=== PATIENT | male | born 1975 | race Two or more races ===

== ENCOUNTER 2023-05-12 04:34 | Day surgery (SDC) | payer OTHER ==
[2023-05-06 15:45] VITALS: BMI 30.7
[2023-05-12] MEDS ORDERED: SUCCINYLCHOLINE CHLORIDE 200 MG/10 ML SYRINGE ONE (12:53)
[2023-05-12] MEDS ORDERED: PROPOFOL 40 ML ONE (12:53)
[2023-05-12] MEDS ORDERED: BUPIVACAINE HCL/PF 0.5% (5MG/ML) 10 ML VIAL ONE (12:54)
[2023-05-12] MEDS ORDERED: HYDROmorphone HCl 2 MG/ML VIAL ONE (13:29)
[2023-05-12] MEDS ORDERED: MIDAZOLAM HCL 2 MG/2 ML SINGLE DOSE VIAL ONE ×2 (13:29→15:23)
[2023-05-12] MEDS ORDERED: ROCURONIUM BROMIDE 50 MG/5 ML SYRINGE ONE (13:31)
[2023-05-12] MEDS ORDERED: ceFAZolin SODIUM 1 GM VIAL IVPB ONE (14:17)
[2023-05-12] MEDS ORDERED: BUPIVACAINE HCL/PF 0.5% (5MG/ML) 10 ML VIAL IJ ONE (14:25)
[2023-05-12] MEDS ORDERED: LIDOCAINE 1% P/F 10 MG/ML VIAL INF ONE (14:25)
[2023-05-12] MEDS ORDERED: ACETAMINOPHEN INJECTION 100 ML IVPB ONE (15:03)
[2023-05-12] MEDS ORDERED: NEOSTIGMINE METHYLSULFATE 0.5 MG/1 ML - 10 ML MDV ONE (15:21)
[2023-05-12] MEDS ORDERED: ONDANSETRON 4 MG/2 ML VIAL IVPUSH PRN (16:15)
[2023-05-12] MEDS ORDERED: LACTATED RINGERS SOLUTION 1,000 ML IV SCH (16:15)
[2023-05-12] MEDS ORDERED: oxyCODONE HCL 5 MG TABLET PO PRN (16:15)
[2023-05-12 19:05] VITALS: RESP 20; TEMP 98.2
[2023-05-12] MEDS ORDERED: oxyCODONE HCL 5 MG TABLET ONE (19:08)
[2023-05-12 20:28] VITALS: BP 112/59; PULSE 70
== END 2023-05-12 20:00 | disposition home or self-care (01) ==
LOC: JASU-SURG 04:34
PROVIDERS: ATTEND Surgery
PROC: 0YU50JZ Supplement Right Inguinal Region with Synthetic Substitute, Open Approach (ICD-10-PCS; principal; 2023-05-12 13:00)
DX: K40.30 Unilateral inguinal hernia, with obstruction, without gangrene, not specified as recurrent (principal)
CPT/HCPCS: 88302-TC; 94760; C1781